=== PATIENT | female | born 1980 | race Two or more races ===

== ENCOUNTER 2021-12-22 18:50 | Emergency (ER) | payer OTHER ==
[~2021-12-22] VITALS: Ht 188 cm; Wt 112.0 kg
[2021-12-22] MEDS ORDERED: ACETAZOLAMIDE125 MG PO (19:07)
[2021-12-22] MEDS ORDERED: FOLBEE PLUS TABL5 MG (19:07)
[2021-12-22] MEDS ORDERED: AMOX1TAB5 PO (19:08)
== END 2021-12-23 01:51 ==
LOC: ER 18:50
DX: G93.2 Benign intracranial hypertension (principal); I82.811 Embolism and thrombosis of superficial veins of right lower extremity; Z20.828 Contact with and (suspected) exposure to other viral communicable diseases